=== PATIENT | female | born 1940 | race Caucasian/White ===

== ENCOUNTER 2017-10-27 16:53 | Inpatient (IN) ==
[2017-10-27 22:01] LABS: Basophils # 0.1 10*3/uL (0.0-0.2); Basophils % 0.4 % (0.0-0.8); Eosinophils # 0.4 10*3/uL (0.0-0.87); Eosinophils % 3.6 % (0.00-10.9); Hematocrit 46.3 VOL% (35.7-47.0); Hemoglobin 14.2 GM/DL (12.0-16.0); Immature Granulocytes % 0.3 %; Immature Granulocytes Absolute 0.04 #; Lymphocytes # 2.4 10*3/uL (1.4-4.0); Lymphocytes % 20.1 % (21.3-54.2); Mean Corpuscular HGB Conc 30.7 GM/DL (32-36); Mean Corpuscular Hemoglobin 27 PG (27-34); Mean Corpuscular Volume 87.4 FL (87-102); Mean Platelet Volume 10.9 FL (9.6-12.0); Monocytes # 0.8 10*3/uL (0.11-0.8); Neutrophils % 68.6 % (38.7-73.9); Platelet Count 283 T/CUMM (130-400); Red Cell Distribution Width 15.5 % (9.3-17.3); White Blood Count 11.7 T/CUMM (4-12)
[2017-10-27 22:09] LABS: Alanine Aminotransferase 18 U/L (13-56); Albumin 3.7 G/DL (3.4-5.0); Alkaline Phosphatase 122 U/L (45-117); Aspartate Amino Transferase 19 U/L (0-37); Barbiturates Screen,Urine Negative (Negative); Benzodiazepines Screen,Urine Negative (Negative); Bilirubin,Total < 0.39 MG/DL (0.2-1.0); Blood Urea Nitrogen 15 MG/DL (7-18); Calcium 8.6 MG/DL (8.5-10.1); Cannabinoid Screen,Urine Negative (Negative); Glucose 147 MG/DL (74-106); Opiate Screen,Urine Negative (Negative); Osmolality,Calculated 282.4 MOS/KG (273-304); Phencyclidine Screen,Urine Negative (Negative); Potassium 3.5 MMOL/L (3.5-5.1); Sodium 140 MMOL/L (136-145); Total Protein 7.5 G/DL (6.4-8.3)
[2017-10-27 22:12] LABS: Apearance,Urine Slightly Hazy (Clear); Bacteria,Urine Occasional /HPF (Few); Bilirubin,Urine Negative (Negative); Blood, Urine Negative (Negative); Glucose,Urine (UA) Negative (Negative); Hyaline Casts,Urine 36 /LPF (0-3); Ketones,Urine Negative (Negative); Mucus,Urine Occasional /LPF (Occasional); Nitrite,Urine Negative (Negative); Protein,Urine Negative; RBC,Urine 1 /HPF (0-4); Squamous Epithelial Cell,Urine Occasional /HPF (0-10); Urine Color Yellow (Yellow); Urine Specific Gravity 1.013 (1.001-1.035); Urine Urobilinogen < 2.0 EU/DL (0.2-1.0); WBC,Urine 4 /HPF (0-6)
[2017-10-27 22:14] LABS: T4 (Thyroxine) 3.8 UG/DL (4.7-13.3); Thyroid Stimulating Hormone 81.2 uIU/ml (0.358-3.74)
[2017-10-28] MEDS ORDERED: DEXTROSE 50% 25 GM/50 ML VIAL IV PRN (00:38)
[2017-10-28] MEDS ORDERED: GLUCAGON 1 MG VIAL IM PRN (00:38)
[2017-10-28] MEDS ORDERED: ONDANSETRON 4 MG/2 ML VIAL IV PRN (00:38)
[2017-10-28] MEDS: cefTRIAXone 1,000 MG in SYRINGE 1 EACH IV SCH (03:52)
[2017-10-28] MEDS ORDERED: AMMONIUM LACTATE 12% CREAM 140 GM TUBE TOP PRN (04:05)
[2017-10-28 06:02] LABS: Basophils # 0.1 10*3/uL (0.0-0.2); Basophils % 0.7 % (0.0-0.8); Eosinophils # 0.6 10*3/uL (0.0-0.87); Eosinophils % 6.2 % (0.00-10.9); Hematocrit 39.8 VOL% (35.7-47.0); Immature Granulocytes % 0.3 %; Immature Granulocytes Absolute 0.03 #; Lymphocytes # 2.4 10*3/uL (1.4-4.0); Lymphocytes % 23.3 % (21.3-54.2); Mean Corpuscular HGB Conc 30.7 GM/DL (32-36); Mean Corpuscular Hemoglobin 27 PG (27-34); Mean Corpuscular Volume 86.9 FL (87-102); Monocytes # 0.8 10*3/uL (0.11-0.8); Monocytes % 7.5 % (1.7-12.7); Neutrophils # 6.4 10*3/uL (1.4-7.4); Platelet Count 238 T/CUMM (130-400); Red Blood Count 4.58 MC/CUMM (3.8-5.5); Red Cell Distribution Width 15.3 % (9.3-17.3); White Blood Count 10.2 T/CUMM (4-12)
[2017-10-28] MEDS ORDERED: LEVOTHYROXINE 25 MCG TABLET PO SCH (06:30)
[2017-10-28 06:33] LABS: Calcium 8.4 MG/DL (8.5-10.1); Osmolality,Calculated 285.1 MOS/KG (273-304); Potassium 3.7 MMOL/L (3.5-5.1)
[2017-10-28 06:41] LABS: Hemoglobin 12.2 GM/DL (12.0-16.0)
[2017-10-28] MEDS: LEVOTHYROXINE 175 MCG TABLET PO SCH (08:39)
[2017-10-28] MEDS: COLESTIPOL 1 GM TABLET PO SCH ×2 (08:39→22:07)
[2017-10-28] MEDS: risperiDONE 1 MG TABLET PO SCH ×2 (08:39→22:06)
[2017-10-28] MEDS: FUROSEMIDE 40 MG TABLET PO SCH (08:39)
[2017-10-28] MEDS: TOLTERODINE LA 4 MG CAPSULE PO SCH (08:39)
[2017-10-28] MEDS: ATORVASTATIN 10 MG TABLET PO SCH (08:39)
[2017-10-28] MEDS: ASPIRIN EC 81 MG TABLET PO SCH (08:39)
[2017-10-28] MEDS: POTASSIUM CHLORIDE 10 MEQ TABLET PO SCH ×2 (08:39→22:07)
[2017-10-28] MEDS: MEMANTINE 10 MG TABLET PO SCH ×2 (08:39→22:07)
[2017-10-28] MEDS: GABAPENTIN 600 MG TABLET PO SCH ×2 (08:39→22:06)
[2017-10-28] MEDS: CETIRIZINE 10 MG TABLET PO SCH (08:39)
[2017-10-28] MEDS: BETAMETHASONE VALERATE 0.1% CREAM 15 GM TUBE TOP SCH (08:40)
[2017-10-28] MEDS: BUDESONIDE/FORMOTEROL 160-4.5 INHALER 6 GM INH SCH ×2 (08:40→22:10)
[2017-10-28] MEDS: PANTOPRAZOLE 40 MG TABLET PO SCH (08:40)
[2017-10-28] MEDS: sitaGLIPtin 100 MG TABLET PO SCH (08:40)
[2017-10-28] MEDS: INSULIN LISPRO 100 UNIT/ML SUBCUT SCH ×4 (08:40→22:13)
[2017-10-28] MEDS: RIVASTIGMINE 9.5 MG/24 HR PATCH TRANSDERM SCH (08:40)
[2017-10-28] MEDS ORDERED: METOPROLOL SUCCINATE XL 25 MG TABLET PO SCH (09:00)
[2017-10-28] MEDS ORDERED: MAGNESIUM SULF RIDER 4 GM in PREMIX 1 EACH IV PRN (09:32)
[2017-10-28] MEDS: MAGNESIUM SULF RIDER 2 GM in PREMIX 1 EACH IV PRN ×2 (11:40→13:40)
[2017-10-28] MEDS: MAGNESIUM OXIDE 400 MG TABLET PO SCH (16:37)
[2017-10-28] MEDS ORDERED: INSULIN GLARGINE 100 UNIT/ML SUBCUT SCH (21:00)
[2017-10-28] MEDS: MONTELUKAST 10 MG TABLET PO SCH (22:06)
[2017-10-28] MEDS: ZALEPLON 5 MG CAPSULE PO PRN (22:08)
[2017-10-28] MEDS: INSULIN GLARGINE 100 UNIT/ML SUBCUT SCH (22:16)
[2017-10-29 06:01] LABS: Basophils # 0.1 10*3/uL (0.0-0.2); Basophils % 0.9 % (0.0-0.8); Eosinophils # 0.7 10*3/uL (0.0-0.87); Eosinophils % 7.8 % (0.00-10.9); Hemoglobin 11.9 GM/DL (12.0-16.0); Immature Granulocytes % 0.5 %; Immature Granulocytes Absolute 0.04 #; Lymphocytes # 2.5 10*3/uL (1.4-4.0); Lymphocytes % 28.6 % (21.3-54.2); Mean Corpuscular HGB Conc 32.2 GM/DL (32-36); Mean Corpuscular Hemoglobin 27 PG (27-34); Mean Corpuscular Volume 83.7 FL (87-102); Mean Platelet Volume 10.6 FL (9.6-12.0); Monocytes # 0.8 10*3/uL (0.11-0.8); Monocytes % 8.8 % (1.7-12.7); Neutrophils # 4.7 10*3/uL (1.4-7.4); Neutrophils % 53.4 % (38.7-73.9); Platelet Count 233 T/CUMM (130-400); Red Blood Count 4.42 MC/CUMM (3.8-5.5); Red Cell Distribution Width 15.5 % (9.3-17.3); White Blood Count 8.8 T/CUMM (4-12)
[2017-10-29 06:24] LABS: Albumin 3.1 G/DL (3.4-5.0); Bilirubin,Total 0.4 MG/DL (0.2-1.0); Calcium 8.2 MG/DL (8.5-10.1); Total Protein 6.1 G/DL (6.4-8.3)
[2017-10-29 06:25] LABS: Osmolality,Calculated 280.4 MOS/KG (273-304); Potassium 3.5 MMOL/L (3.5-5.1)
[2017-10-29] MEDS: LEVOTHYROXINE 175 MCG TABLET PO SCH (06:34)
[2017-10-29] MEDS: BUDESONIDE/FORMOTEROL 160-4.5 INHALER 6 GM INH SCH ×2 (09:17→21:23)
[2017-10-29] MEDS: cefTRIAXone 1,000 MG in SYRINGE 1 EACH IV SCH (09:18)
[2017-10-29] MEDS: CETIRIZINE 10 MG TABLET PO SCH (09:19)
[2017-10-29] MEDS: MEMANTINE 10 MG TABLET PO SCH ×2 (09:19→21:22)
[2017-10-29] MEDS: ATORVASTATIN 10 MG TABLET PO SCH (09:19)
[2017-10-29] MEDS: MAGNESIUM OXIDE 400 MG TABLET PO SCH (09:19)
[2017-10-29] MEDS: PANTOPRAZOLE 40 MG TABLET PO SCH (09:19)
[2017-10-29] MEDS: GABAPENTIN 600 MG TABLET PO SCH ×2 (09:19→21:22)
[2017-10-29] MEDS: COLESTIPOL 1 GM TABLET PO SCH ×2 (09:19→21:22)
[2017-10-29] MEDS: sitaGLIPtin 100 MG TABLET PO SCH (09:19)
[2017-10-29] MEDS: TOLTERODINE LA 4 MG CAPSULE PO SCH (09:19)
[2017-10-29] MEDS: risperiDONE 1 MG TABLET PO SCH ×2 (09:19→21:22)
[2017-10-29] MEDS: POTASSIUM CHLORIDE 10 MEQ TABLET PO SCH ×2 (09:19→21:22)
[2017-10-29] MEDS: FUROSEMIDE 40 MG TABLET PO SCH (09:20)
[2017-10-29] MEDS: INSULIN LISPRO 100 UNIT/ML SUBCUT SCH ×3 (09:20→21:23)
[2017-10-29] MEDS: ASPIRIN EC 81 MG TABLET PO SCH (09:20)
[2017-10-29] MEDS: RIVASTIGMINE 9.5 MG/24 HR PATCH TRANSDERM SCH (10:07)
[2017-10-29] MEDS ORDERED: TUBERCULIN SKIN TEST 0.1 ML SYRINGE INTRADERM ONE (11:00)
[2017-10-29] MEDS: BETAMETHASONE VALERATE 0.1% CREAM 15 GM TUBE TOP SCH (19:11)
[2017-10-29] MEDS: MONTELUKAST 10 MG TABLET PO SCH (21:22)
[2017-10-29] MEDS: INSULIN GLARGINE 100 UNIT/ML SUBCUT SCH (21:23)
[2017-10-29] MEDS: ZALEPLON 5 MG CAPSULE PO PRN (21:30)
[2017-10-30] MEDS: LEVOTHYROXINE 175 MCG TABLET PO SCH (06:00)
[2017-10-30 07:48] VITALS: BP 103/58
[2017-10-30] MEDS: BUDESONIDE/FORMOTEROL 160-4.5 INHALER 6 GM INH SCH (10:15)
[2017-10-30] MEDS: BETAMETHASONE VALERATE 0.1% CREAM 15 GM TUBE TOP SCH (10:16)
[2017-10-30] MEDS: RIVASTIGMINE 9.5 MG/24 HR PATCH TRANSDERM SCH (10:16)
[2017-10-30] MEDS: cefTRIAXone 1,000 MG in SYRINGE 1 EACH IV SCH (10:16)
[2017-10-30] MEDS: sitaGLIPtin 100 MG TABLET PO SCH (10:18)
[2017-10-30] MEDS: CETIRIZINE 10 MG TABLET PO SCH (10:18)
[2017-10-30] MEDS: GABAPENTIN 600 MG TABLET PO SCH (10:18)
[2017-10-30] MEDS: TOLTERODINE LA 4 MG CAPSULE PO SCH (10:18)
[2017-10-30] MEDS: MEMANTINE 10 MG TABLET PO SCH (10:18)
[2017-10-30] MEDS: MAGNESIUM OXIDE 400 MG TABLET PO SCH (10:19)
[2017-10-30] MEDS: ATORVASTATIN 10 MG TABLET PO SCH (10:19)
[2017-10-30] MEDS: POTASSIUM CHLORIDE 10 MEQ TABLET PO SCH (10:19)
[2017-10-30] MEDS: COLESTIPOL 1 GM TABLET PO SCH (10:19)
[2017-10-30] MEDS: ASPIRIN EC 81 MG TABLET PO SCH (10:19)
[2017-10-30] MEDS: PANTOPRAZOLE 40 MG TABLET PO SCH (10:19)
[2017-10-30] MEDS: FUROSEMIDE 40 MG TABLET PO SCH (10:19)
[2017-10-30] MEDS: risperiDONE 1 MG TABLET PO SCH (10:20)
[2017-10-30] MEDS: INSULIN LISPRO 100 UNIT/ML SUBCUT SCH ×2 (10:20→13:07)
== END 2017-10-30 12:15 | DRG 690 ==
LOC: N.ED 16:53 → N.EDINP 10-28 00:31 → N.2E 10-28 01:01
PROVIDERS: ADMIT Hospitalist; ATTEND Hospitalist